=== PATIENT | female | born 1955 | race Caucasian/White ===

== ENCOUNTER 2017-09-01 12:47 | Observation (INO) ==
[2017-09-01] MEDS ORDERED: *HR* OxyCODONE Immed Rel 5 MG TABLET PO PRN (14:06)
[2017-09-01] MEDS: *HR* OxyCODONE Immed Rel 5 MG TABLET PO PRN ×3 (14:26→22:21)
--- NOTE | 2017-09-01 14:43 | Orthopedic History & Physical ---
Date of Encounter: 09/01/17 Time of Encounter: 14:02 Assessment and Plan (1) Fracture, humerus Current visit: Yes Status: Acute Plan: Admit to . Patient has history of HTN, Anxiety, GERD and Depression - will obtain labs, EKG - pending these - will be medically stable for surgery. Surgery for 09/02 - potentially a -reverse Right TSR. will be reviewing CT in the AM. NPO after midnight. Pain control Consent obtained and signed by patient. Qualifiers: Encounter type: initial encounter Humerus Location: shaft Fracture type: closed Fracture morphology: spiral Fracture alignment: displaced Laterality: right Qualified Code(s): S42.341A - Displaced spiral fracture of shaft of humerus, right arm, initial encounter for closed fracture (2) HTN (hypertension) Current visit: Yes Status: Chronic Qualifiers: Hypertension type: essential hypertension Qualified Code(s): I10 - Essential (primary) hypertension (3) Anxiety Current visit: Yes Status: Chronic (4) Depression Current visit: Yes Status: Chronic Qualifiers: Depression Type: unspecified Qualified Code(s): F32.9 - Major depressive disorder, single episode, unspecified (5) GERD (gastroesophageal reflux disease) Current visit: No Status: Chronic Qualifiers: Esophagitis presence: esophagitis presence not specified Qualified Code(s) : K21.9 - Gastro-esophageal reflux disease without esophagitis History of Present Illness Chief complaint: Right Humerus Fracture HPI: Ms. Wells is a 62 year old female, Patient presents today for complaints of right arm/shoulder pain.. Patient had injury on 09-01-17 describes sharp pain 10/ 10 slipped on granddaughter's blanket in the middle the night took Xanax had severe pain went to bed and woke up this morning and severe pain taking anti- inflammatories with seen in the emergency department and the patient had severe pain when she woke up was given a sling and was sent here for evaluation. Patient was told she had a fracture of her right humerus. General Examination: BP 138/78 mm Hg, Ht 5ft3in, Wt 170 lb 0 oz, BMI 30.11 Index, RR 20 /min, Pain scale 10 1-10 attempted to weight patient today, patient presents in wheelchair, patient refused to get weighed due to extreme pain. . CONSTITUTIONAL: alert, oriented, in no acute distress, non toxic . HEAD: normocephalic, Normal Contour and Symmetry . EYES: normal, pupils equal, and round. NOSE: normal, no epistaxis . ORAL CAVITY: mucosa moist . PERIPHERAL PULSES: strong and equal bilaterally . NEUROLOGIC: no focal deficits, alert and oriented . LYMPH NODES: no palpable adenopathy. Cervical Spine: Flexion: full. Extension: full. Lateral rotational: full. Lateral flexion: full. RUE: Swelling, no erythema, obvious deformity to proximal humerus. No lesions or abrasions. ROM: limited, elbow ROM painful. Wrist ROM intact. Strength: Wrist strength intact NV: Radial nerve intact, no wrist drop Right Humerus XRAY: XR/XR humerus RT IMPRESSION: Displaced spiral fracture involving the proximal humeral diaphysis with apparent involvement of the humeral head. CT Humerus: IMPRESSION: 1. Traumatic comminuted proximal humeral diaphyseal fracture with 2.5 cm of lateral and posterior displacement and 40 degrees of anterior apex angulation. 2. Traumatic comminuted humeral head fracture with fracture line extending across the base of the greater tuberosity. None of the fragments in the humeral head are displaced more than 1 cm or more than 45 degrees. Plan: Admit to . Patient has history of HTN, Anxiety, GERD and Depression - will obtain labs, EKG - pending these - will be medically stable for surgery. Surgery for 09/02 - potentially a -reverse Right TSR. will be reviewing CT in the AM. NPO after midnight. Pain control Past Med Surg Social Fam HX - Past Medical History Medical history: hypertension Psychiatric history: anxiety - Social History Smoking Status: Former smoker Alcohol use: occasionally Drug use: none Medications and Allergies ALPRAZolam [Xanax 1 MG Tablet] 1 mg PO DAILY PRN 09/01/17 [History] Furosemide [Lasix] 20 mg PO DAILY 09/01/17 [History] Lansoprazole [Prevacid] 30 mg PO DAILY 09/01/17 [History] Losartan/Hydrochlorothiazide [Hyzaar 100-25 Tablet] 1 tab PO DAILY 09/01/17 [ History] 3 Allergy/AdvReac Type Severity Reaction Status Date / Time No Known Allergies Allergy Verified 09/01/17 09:36 All Systems Reviewed: The remainder of the systems were reviewed and are negative - Constitutional Constitutional: as per HPI - Cardiovascular Cardiovascular: as per HPI - Respiratory Respiratory: as per HPI - Musculoskeletal Musculoskeletal: as per HPI Results - Labs Result Diagrams: 09/01/17 14:30 09/01/17 14:30 Labs: All other labs normal. - Diagnostic results Shoulder x-ray: image reviewed Shoulder CT: image reviewed
[2017-09-01 14:48] LABS: Basophils % 0.2 %; Hematocrit 34.9 % (35.3-44.9); Hemoglobin 12.3 g/dL (11.5-15.4); Immature Granulocytes % 0.4 % (0-4); Lymphocytes # 1.3 K/mcL (0.6-4.6); Lymphocytes % 14.4 %; Mean Corpuscular HGB Conc 35.2 g/dL (31.6-35.5); Mean Corpuscular Hemoglobin 31.1 pg (28.0-33.3); Mean Corpuscular Volume 88.4 fL (83.0-100.0); Monocytes # 0.8 K/mcL (0.0-1.3); Monocytes % 9.1 %; Neutrophils # 6.9 K/mcL (1.6-8.9); Platelet Count 353 K/mcL (140-400); Red Blood Count 3.95 M/mcL (3.82-4.97); Red Cell Distribution Width 12.6 % (11.5-14.5); Segmented Neutrophils % 75.9 %
[2017-09-01 14:53] LABS: Prothrombin Time 10.9 Seconds (9.4-12.1)
[2017-09-01 15:06] LABS: Activated Partial Thrombo Time 18.5 Seconds (26.0-36.0)
[2017-09-01 15:11] LABS: Calcium 9.4 mg/dL (8.6-10.3); Potassium 3.7 mEq/L (3.5-5.1)
[2017-09-01] MEDS: 0.9 % Sodium Chloride 1,000 ML IVC SCH (16:49)
[2017-09-01] MEDS ORDERED: ALPRAZolam 1 MG TABLET PO PRN ×2 (18:27→21:02)
--- NOTE | 2017-09-01 20:34 | Anesthesia Evaluation PreOp ---
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) Other Medical History: GERD Anesthesia History: No Prior Anesthetic Complications, Past Anesthesia ( endometrial ablation, cholecystectomy, cataracts) Alcohol Use: occasionally Drug use: none Medications and Allergies ALPRAZolam [Xanax 1 MG Tablet] 1 mg PO DAILY PRN 09/01/17 [History] Furosemide [Lasix] 20 mg PO DAILY 09/01/17 [History] Lansoprazole [Prevacid] 30 mg PO DAILY 09/01/17 [History] Losartan/Hydrochlorothiazide [Hyzaar 100-25 Tablet] 1 tab PO DAILY 09/01/17 [ History] 3 Allergy/AdvReac Type Severity Reaction Status Date / Time No Known Allergies Allergy Verified 09/01/17 09:36 - Meds/Allergy Pre-op Review Medications Reviewed: Yes Allergies Reviewed: Yes Beta Blockers on Current Med List: No Anesthesia Results - Labs 09/01/17 14:30 09/01/17 14:30 Anesthesia Exam Vital Signs/O2 Sat, Most Current Temp Pulse Resp BP Pulse Ox 99.1 F 100 16 126/77 94 09/01/17 19:27 09/01/17 19:27 09/01/17 19:27 09/01/17 19:27 09/01/17 19:27 Weight: 74kg NPO (# of Hours): >8 - HEENT Pupil (Motor): Pupils equal, EOMI Mallampati: II Teeth: Poor dentition (several chipped teeth) Oral Opening: Greater than 3 - 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
[2017-09-01] MEDS ORDERED: Naloxone 0.4 MG/ML INJ IVP PRN (21:08)
[2017-09-01 22:00] LABS: Calcium 8.5 mg/dL (8.6-10.3); Potassium 3.1 mEq/L (3.5-5.1)
[2017-09-02] MEDS: *HR* OxyCODONE Immed Rel 5 MG TABLET PO PRN ×2 (06:24→11:13)
[2017-09-02] MEDS: 0.9 % Sodium Chloride 1,000 ML IVC SCH ×2 (06:25→16:19)
--- NOTE | 2017-09-02 08:24 | Orthopedics Progress Note ---
Date of Encounter: 09/02/17 Time of Encounter: 08:23 Subjective Interval history: Patient seen this morning admitted with a proximal humerus fracture with a head split and a calcar fracture. We discussed different treatment options recommendations for right total shoulder replacement reverse bone socket. We reviewed the risks and benefits as well as recovery. All questions were answered. The patient agreed to this treatment plan and appeared to understand the plan is reviewed. Objective Vital signs: Vital Signs Temp Pulse Resp BP Pulse Ox 09/02/17 06:59 98.2 F 92 20 117/66 93 09/02/17 04:13 98.7 F 76 16 112/74 93 09/02/17 00:03 98.7 F 16 83 114/69 92 09/01/17 19:27 99.1 F 100 16 126/77 94 09/01/17 14:03 98.9 F 79 16 133/91 94 Intake and Output 09/01/17 09/02/17 09/02/17 23:59 07:59 15:59 Intake Total 1710 / 1710 Output Total 750 / 750 Balance 960 / 960 Intake: IV Fluids 1000 / 1000 0.9 % Sodium Chloride 1,000 ML 1000 / 1000 @ 75 mls/hr IVC .[id number] TAMIKA Rx #:[id number] Oral 710 / 710 Output: Urine 750 / 750 - Labs CBC & BMP: 09/01/17 14:30 09/01/17 21:38 Labs: Abnormal lab results Hct 34.9 % (35.3-44.9) L 09/01/17 14:30 MPV 9.0 fL (9.4-12.4) L 09/01/17 14:30 APTT 18.5 Seconds (26.0-36.0) L 09/01/17 14:30 Sodium 135 mEq/L (136-145) L 09/01/17 21:38 Potassium 3.1 mEq/L (3.5-5.1) L 09/01/17 21:38 BUN 28 mg/dL (8-23) H 09/01/17 21:38 Est GFR ( Amer) 58 (> 60) L 09/01/17 21:38 Est GFR (Non-Af Amer) 48 (> 60) L 09/01/17 21:38 Glucose 135 mg/dL (70-105) H 09/01/17 21:38 Calcium 8.5 mg/dL (8.6-10.3) L 09/01/17 21:38 - VTE Documentation of Mechanical Device: Intermittent pneumatic compression device Consult Discharge Plan - Plan Referrals: Mikey Nelson MD [Primary Care Provider] -
[2017-09-02] MEDS ORDERED: Losartan/HCTZ 50-12.5 TABLET PO SCH (09:00)
[2017-09-02] MEDS ORDERED: Furosemide 20 MG TABLET PO SCH (09:00)
[2017-09-02] MEDS ORDERED: *HR* Succinylcholine 200 MG/10 ML VIAL IVP ONE (14:32)
[2017-09-02] MEDS ORDERED: Dexamethasone 4 MG/ML VIAL ONE ×2 (14:34→14:37)
[2017-09-02] MEDS ORDERED: *HR* Midazolam HCl 2 MG/2 ML VIAL ONE (14:34)
[2017-09-02] MEDS ORDERED: Lidocaine -MPF 2% 2 ML VIAL ONE (14:34)
[2017-09-02] MEDS ORDERED: *HR* FentaNYL (PF) 100 MCG/2 ML VIAL ONE (14:34)
[2017-09-02] MEDS ORDERED: Lidocaine -MPF 4% 5 ML AMPUL ONE (14:34)
[2017-09-02] MEDS ORDERED: *HR* Propofol 200 MG/20 ML VIAL IVP ONE (14:34)
[2017-09-02] MEDS ORDERED: Ondansetron 4 MG/2 ML VIAL ONE (14:34)
[2017-09-02] MEDS ORDERED: Bupivacaine/Clonidine Syringe 1 EACH SYRINGE ONE (14:49)
[2017-09-02] MEDS ORDERED: ROPIVACAINE HCL/PF 0.5% 30 ML VIAL ONE (14:49)
[2017-09-02] MEDS ORDERED: CeFAZolin Syringe 2,000MG/20 ML SYR IVPB ONE (15:05)
--- NOTE | 2017-09-02 15:23 | Electrocardiograph Report ---
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
[2017-09-02] MEDS ORDERED: *HR* HYDROmorphone (PF) 1 MG/ML SYRINGE IVP PRN ×2 (15:31→18:15)
[2017-09-02] MEDS ORDERED: *HR* Promethazine 25 MG/ML VIAL IVP PRN ×2 (15:31→18:15)
--- NOTE | 2017-09-02 15:31 | Anesthesia Procedures ---
Date of Encounter: 09/02/17 Time of Encounter: 15:30 Procedures: Anesthesia - Nerve Block Procedure Date: 09/02/17 Time: 15:30 Allergies/Adv Reactions: nkda Pre-op Diagnosis: right shoulder replacement Surgical Procedure: right shoulder arthritis Checklist: Correct Patient Identifier, Correct procedure, History checked Correct side: Right Blood Thinner: No Monitor Applied: EKG, BP, Pulse Oximetry Supplemental Oxygen via Nasal Cannula (L/min): 2 Sedation: Versed (mg): 2 Sedation: Fentanyl (mcg): 100 Indication: Post Op Analgesia Pre-op Neuro Deficits: No Block Type: Supraclavicular (icb/scp) Catheter placed: No Sterile Technique: Yes Ultrasound used: Yes Anatomy identified: Yes Visual spread of Local: Yes Neuro Stimulation: Yes Nerve Stimulator Range: 0.2 - 0.4 mA Blood on Needle Aspiration: No Smooth Injection of Local: Yes Pain with Injection of Local: No Prep: Chlorhexadine Needle: 22 x 50 mm Stimuplex Local: 0.25% Bupivicaine w/Clonidine 20 mcg/cc, Ropivacaine (0.5% with decadron 8mg ) Volume (cc): 60 Number of Attempts: 1 Complications: None/effective block Vitals: Vital Signs - Last 8 Hours Temp Pulse Resp BP Pulse Ox 09/02/17 15:10 91 18 125/77 96 09/02/17 11:29 98.8 F 88 16 122/73 94 Intake and Output 09/01/17 09/02/17 09/02/17 23:59 07:59 15:59 Intake Total 1710 / 1710 0 / 0 Output Total 750 / 750 Balance 960 / 960 0 / 0 Intake: IV Fluids 1000 / 1000 0.9 % Sodium Chloride 1,000 ML 1000 / 1000 @ 75 mls/hr IVC .[id number] TAMIKA Rx #:[id number] Oral 710 / 710 0 / 0 Output: Urine 750 / 750 Comments: per dr. quijano request
[2017-09-02] MEDS ORDERED: *HR* PHENYLEPHRINE 1,000 MCG/10 ML SYRINGE IVP ONE (16:25)
--- NOTE | 2017-09-02 17:41 | Orthopedic Operative Note ---
Date of procedure: 09/02/17 Pre-op diagnosis: Right Displaced humeral oblique humeral shaft FX/head split component Post-op diagnosis: same Procedure: Procedure: Total Shoulder Replacment Reverse, right, open reduction internal fixation humeral shaft Estimated blood loss: 300 cc Hardware: Metal and polyethylene replacement: Arthrex small glenoid baseplate, 2 4.5 screws. 1 6.5 screw, 39+4 glenosphere, long 6 humeral stem, poly insert 3 constrained, 4 Arthrex cerclage fiber tape Procedural Notes: Patient with a long oblique humeral shaft fracture and a head split component. Operative procedure: The patient was brought to the operating room and placed on the operating room table. After general anesthesia was administered the operative shoulder was examined. Findings were noted. The patient was placed in the modified beachchair position. All pressure points were padded appropriately. And the head was stabilized in the neutral position. The operative extremity was prepped and draped in the sterile surgical fashion. The patient received IV antibiotics prior to skin incision. A extended deltopectoral approach was made to the operative shoulder. Incision was made to the skin and subcutaneous tissue,hemo stasis was obtained with Bovie cautery. Using careful blunt dissection the cephalic vein was identified and mobilized medially. The deltopectoral interval was developed and the clavipectoral fascia was incised. Using careful blunt dissection, the humeral shaft fracture was exposed. It was reduced and held in place with bone holding forceps. 3 Arthrex cerclage fiber tapes were passed around under direct vision avoiding any soft tissue capture and they were secured. This helped reduce the fracture and gave secure fixation. Attention was then turned to the reverse shoulder replacement component of the procedure. The subscap was released off the lesser tuberosity and tagged with #2 FiberWire suture subscap was irreparable. The patient was noted to have associated large supraspinatus tendon tear, and the head was removed in piecemeal secondary to the split. Patient had a minimally displaced greater tuberosity fracture. The humerus was prepared with a broaching process and 40 degrees of retroversion up to a 6 long stem. Attention was then turned to the glenoid. Anterior and posterior Bankart retractors were placed to expose the glenoid. The glenoid guide was seated and the centering hole was made. It was reamed with the appropriate reamer. The small baseplate was seated and secured with (2) 4.5 screws and one 6.5 screw. The baseplate was irrigated and dried and the 42+4 Glenosphere was seated and secured with the Waters taper. The Waters taper was tested and found to be secure the trial humeral stem was seated, Trial reduction found the shoulder to be relocatable. Trial components were removed and the long 6 stem was impacted in place in the patient's voiding degrees version. Trial reduction found the shoulder to be relocatable and stable with the appropriate 3 constrained Trial component was removed and the real implant was seated and secured the shoulder was reduced. The shoulder had excellent motion and excellent stability and no evidence of dislocation. The tuberosity was secured to the component with a fourth Arthrex cerclage fiber tape. This gave excellent fixation. The deep tissue was irrigated with pulse irrigation. The deltopectoral interval was closed with a running #1 PDS suture, subcutaneous tissue was irrigated and closed with 0 PDS suture, the skin was closed with suleiman. The patient was placed in a sterile dressing, abduction brace and extubated. The patient was then transferred to the recovery room in stable condition. Anesthesia: GETA Surgeon: Aren Sanford Was there an district administrative assistant present: No Estimated blood loss (cc): 300 Condition: stable Disposition: PACU
[2017-09-02 18:07] LABS: Hematocrit 31.1 % (35.3-44.9)
[2017-09-02 18:08] LABS: Hemoglobin 10.3 g/dL (11.5-15.4)
[2017-09-02] MEDS ORDERED: *HR* OxyCODONE Immed Rel 5 MG TABLET PO PRN (18:15)
[2017-09-02] MEDS ORDERED: Sennosides 8.6 MG TABLET PO PRN (18:15)
[2017-09-02] MEDS ORDERED: Ondansetron 4 MG/2 ML VIAL IVP PRN (18:15)
[2017-09-02] MEDS ORDERED: MOM Conc 10 ML UD.LIQ PO PRN (18:15)
[2017-09-02] MEDS ORDERED: ALPRAZolam 1 MG TABLET PO PRN (18:15)
[2017-09-02] MEDS ORDERED: Temazepam 15 MG CAPSULE PO PRN (18:15)
[2017-09-02] MEDS ORDERED: 0.9 % Sodium Chloride 1,000 ML IVC SCH (18:15)
[2017-09-02] MEDS ORDERED: Naloxone 0.4 MG/ML INJ IVP PRN ×2 (18:15)
[2017-09-02] MEDS ORDERED: Ringers Solution, Lactated 1,000 ML IVC SCH (18:15)
--- NOTE | 2017-09-02 18:15 | Anesthesia Evaluation Post Op ---
Date of Encounter: 09/02/17 Time of Encounter: 18:14 - Vital Signs Vital Signs: Vital Signs/O2 Sat, Most Current Temp Pulse Resp BP Pulse Ox 98.9 F 94 20 120/69 92 09/02/17 17:42 09/02/17 18:02 09/02/17 18:02 09/02/17 18:02 09/02/17 18:02 - Lungs Lungs: Clear Ascult./Percussion - Airway Airway: Non-obstructed - Cardiovascular Regular Rate - Mental Status Mental Status: Alert & Oriented, Answers Appropriately - Pain Pain Scale: 0 Pain Scale used: Numeric (1 - 10) - Nausea Vomiting Nausea Vomiting: Not Present - Hydration Hydration: Tolerates oral liquids, Has not voided - Discharge PostOp Status: Transfer Patient to floor
[2017-09-03] MEDS: ceFAZolin 2,000 MG in 0.9 % Sodium Chloride 100 ML IVPB SCH ×2 (00:40→08:52)
[2017-09-03 03:48] LABS: Hematocrit 29.4 % (35.3-44.9); Hemoglobin 9.8 g/dL (11.5-15.4)
[2017-09-03] MEDS: *HR* OxyCODONE Immed Rel 5 MG TABLET PO PRN ×3 (05:13→13:08)
[2017-09-03] MEDS: Furosemide 20 MG TABLET PO SCH ×2 (08:33→08:36)
[2017-09-03] MEDS: *HR* Enoxaparin 30 MG/0.3 ML SYRINGE SQ SCH ×2 (08:33→09:30)
[2017-09-03] MEDS ORDERED: Losartan/HCTZ 50-12.5 TABLET PO SCH (09:00)
--- NOTE | 2017-09-03 09:45 | Orthopedics Progress Note ---
Date of Encounter: 09/03/17 Time of Encounter: 09:44 Subjective Interval history: Patient was seen this morning doing well without complaints. Afebrile vital signs stable. Operative extremity: Neurovascularly intact Dressing clean dry and intact Calves nontender Assessment and plan: Continue with postoperative care Hematocrit 29.8 discharged today. Objective Vital signs: Vital Signs Temp Pulse Resp BP Pulse Ox 09/03/17 06:56 98.4 F 103 18 118/76 94 09/02/17 23:55 98.3 F 105 16 101/64 96 09/02/17 20:36 98.2 F 108 16 111/70 95 09/02/17 20:25 98.2 F 109 16 111/70 95 09/02/17 20:08 95 09/02/17 18:55 98.6 F 90 16 119/87 90 09/02/17 18:12 99.1 F 94 20 122/64 94 09/02/17 18:02 94 20 120/69 92 09/02/17 17:52 96 20 127/71 92 09/02/17 17:42 98.9 F 93 18 126/80 98 09/02/17 15:40 91 16 110/65 98 09/02/17 15:26 90 18 101/59 99 09/02/17 15:10 91 18 125/77 96 09/02/17 11:29 98.8 F 88 16 122/73 94 Intake and Output 09/02/17 09/03/17 09/03/17 23:59 07:59 15:59 Intake Total 1540 / 1540 100 / 100 120 / 120 Output Total 1600 / 1600 300 / 300 Balance -60 / -60 -200 / -200 120 / 120 Intake: IV Fluids 1000 / 1000 100 / 100 0.9 % Sodium Chloride 1,000 ML 1000 / 1000 @ 75 mls/hr IVC .[id number] TAMIKA Rx #:[id number] Ancef 2,000 MG In 0.9 % Sodium 100 / 100 Chloride 100 ML @ 200 mls/hr IVPB Q8H TAMIKA Rx#:[id number] Oral 540 / 540 120 / 120 Output: Urine 1300 / 1300 300 / 300 Estimated Blood Loss 300 / 300 Other: Meal Breakfast Percent of Meal Consumed 70% # Voids 1 - Labs CBC & BMP: 09/03/17 03:02 09/01/17 21:38 Labs: Abnormal lab results Hgb 9.8 g/dL (11.5-15.4) L 09/03/17 03:02 Hct 29.4 % (35.3-44.9) L 09/03/17 03:02 MPV 9.0 fL (9.4-12.4) L 09/01/17 14:30 APTT 18.5 Seconds (26.0-36.0) L 09/01/17 14:30 Sodium 135 mEq/L (136-145) L 09/01/17 21:38 Potassium 3.1 mEq/L (3.5-5.1) L 09/01/17 21:38 BUN 28 mg/dL (8-23) H 09/01/17 21:38 Est GFR ( Amer) 58 (> 60) L 09/01/17 21:38 Est GFR (Non-Af Amer) 48 (> 60) L 09/01/17 21:38 Glucose 135 mg/dL (70-105) H 09/01/17 21:38 Calcium 8.5 mg/dL (8.6-10.3) L 09/01/17 21:38 - VTE Documentation of Mechanical Device: Venous foot pump, device Consult Discharge Plan - Plan Referrals: Mikey Nelson MD [Primary Care Provider] - Prescriptions: Cyclobenzaprine [Flexeril] 10 mg PO TID #30 tablet OxyCODONE Immed Rel [Roxicodone 5 MG] 5 mg PO Q4HR PRN 5 Days #20 tablet PRN Reason: Pain
[2017-09-03 11:16] VITALS: BP 125/78
[2017-09-03] MEDS ORDERED: Acetaminophen IV 1,000 MG/100 ML INFUS..BTL IVPB PRN (11:27)
[2017-09-03] MEDS ORDERED: Ketorolac 30 MG/ML VIAL IVP PRN (11:28)
== END 2017-09-03 15:35 | disposition home or self-care (01) ==
LOC: 3NENU
PROVIDERS: ADMIT Orthopaedic Surgery; ATTEND Orthopaedic Surgery